=== PATIENT | female | born 1960 | race American Indian/Alaskan Native ===

== ENCOUNTER 2016-12-28 09:20 | Outpatient (CLI) | payer OTHER ==
--- NOTE | 2016-12-28 16:43 | Ultrasound Report ---
THYROID ULTRASOUND:12/28/16 09:20:00 CLINICAL: Thyrotoxicosis. FINDINGS: High-resolution ultrasound demonstrated a mildly enlarged and multinodular thyroid. The right lobe measures 5.2 x 1.4 x 2.2cm. The left lobe measures 4.6 x 2.0 x 2.1 cm. The isthmus measures 8.0 mm in thickness. Numerous subtle bilateral hypoechoic nodules. The largest is in the right lower pole and measures 1.4 x 1.3 x 1.3 cm. IMPRESSION: Enlarged multinodular thyroid with a dominant right lower pole 1.4 cm nodule.
== END 2016-12-28 09:21 | disposition home or self-care (01) ==
LOC: SPVWC 09:20
PROVIDERS: ATTEND Family Medicine
DX: E05.80 Other thyrotoxicosis without thyrotoxic crisis or storm (principal); E04.2 Nontoxic multinodular goiter
CPT/HCPCS: 76536

== ENCOUNTER 2017-01-03 09:28 | Day surgery (SDC) | payer OTHER ==
[~2017-01-03 09:28] MED LIST: DIPRIVAN 10 MG/ML IV ONE
--- NOTE | 2017-01-03 10:56 | Anesthesia Day of Surgery ---
Anesthesia Day of Surgery - Day of Surgery Patient Examined: Yes Patient H&P Reviewed: Yes Patient is NPO: Yes
--- NOTE | 2017-01-03 10:56 | Anesthesia Consultation ---
Anesthesia Consult and Med Hx Date of service: 01/03/17 - Airway Anesthetic Teeth Evaluation: Good, Dentures (top) ROM Head & Neck: Adequate Mental/Hyoid Distance: Adequate Mallampati Class: Class III Intubation Access Assessment: Possibly Difficult - Pulmonary Exam CTA: Yes - Cardiac Exam Cardiac Exam: RRR - Pre-Operative Health Status ASA Pre-Surgery Classification: ASA2 Proposed Anesthetic Plan: MAC - Pulmonary Hx Smoking: Yes (did not abstain) - Cardiovascular System Hx Hypertension: No - Central Nervous System Hx Back Pain: Yes - Gastrointestinal Hx Gastroesophageal Reflux Disease: Yes - Endocrine Hx Non-Insulin Dependent Diabetes: Yes Hx Hypothyroidism: Yes - Other Systems Hx Obesity: Yes
[2017-01-03] MEDS ORDERED: NACL 0.9% 1000 ML 1,000 ML IV SCH (11:00)
[2017-01-03] MEDS ORDERED: WATER FOR IRRIG STERILE IR ONE (12:31)
[2017-01-03] MEDS ORDERED: XYLOCAINE MPF 2% ONE (12:31)
[2017-01-03] MEDS ORDERED: WATER FOR IRRIG STERILE ONE (12:32)
[2017-01-03] MEDS ORDERED: INFANTS' GAS RELIEF PO ONE (12:32)
--- NOTE | 2017-01-03 13:25 | Operative Report ---
Operative Report Operative Report: Date of procedure: 01/03/2017 Procedure: Colonoscopy with snare polypectomy, hot biopsy polypectomy, polyp ablation. Attending physician: Anil Lan MD Flare Maker: Anil Lan MD Indication: Patient is a 56-year-old female who presents for colorectal cancer screening. A colonoscopy is done to evaluate patient so that treatment may be directed based on the findings. Consent: Informed consent was obtained after advising the patient and family regarding nature of this procedure, its indications, potential benefits as well as possible complications including but not limited to bleeding perforation and adverse reaction to medication, infection as well as other cardiopulmonary complications. An informed written and verbal consent was then obtained after due opportunity was provided for questions and answers. Monitoring: Patient was monitored continuously with pulse oximetry and electrocardiographic recordings as well as blood pressure recordings. Vital signs remained stable throughout this procedure with no untoward events. Preoperative assessment: Patient was assessed immediately prior to this procedure for capacity to tolerate monitored anesthesia care and moderate sedation as well as general anesthesia. Patient's ASA classification is 2, Mallampati class is 2, Hyomental distance is 3. Instrument: Tekora video colonoscope Medications: Propofol given intravenously in divided doses. For details please refer to anesthesia records. Description of procedure: Patient was placed in the left lateral decubitus position after achieving sedation, a digital rectal examination was performed following which the colonoscope was introduced into the anal verge and advanced to the cecum which was identified by the cecal valve, the appendiceal orifice, as well as by the cecal strap and direct transillumination. The colonoscope was subsequently withdrawn with careful inspection of all mucosal surfaces. Patient tolerated this procedure well and was subsequently taken to the recovery room. The following findings were noted. Findings: The preparation was average. The cecum was normal. The ascending colon was normal. The transverse colon was normal. The descending colon was normal. In the sigmoid colon, patient had a semi-pedunculated 1 cm polyp which was removed by snare electrocautery and retrieved. In the rectum, patient had a 6 m sessile polyp that was removed biopsy polypectomy. There was an adjoining 4 mm sessile polyp that was removed biopsy polypectomy. There was a diminutive 3 mm polyp that was ablated. On the retroflex view at the anal verge , patient had internal hemorrhoids. Impression: Sigmoid colon polyp status post snare polypectomy. Rectal polyps status post hot biopsy polypectomy. Rectal polyp status post ablation. Internal hemorrhoids. Plan: Follow pathology report. High-fiber diet. Repeat colonoscopy in 5 years.
--- NOTE | 2017-01-03 13:25 | Discharge Summary ---
Short Stay Discharge Plan Activity: advance as tolerated Weight Bearing Status: Weight Bear as Tolerated Diet: regular Follow up with: ANAHI MINA MD [Primary Care Provider] - 7 Days
[2017-01-03 13:41] VITALS: BP 131/84
--- NOTE | 2017-01-03 15:01 | Post Anesthesia Evaluation ---
- Post Anesthesia Evaluation Patient Participated: Yes Airway Patent: Yes Stable Respiratory Function: Yes Nausea/Vomiting: No Temp > 96.8F: Yes Pain Manageable: Yes Adequeate Hydration: Yes Anesthesia Complications: No Block Receding Appropriately: Not Applicable Patient on Ventilator: No
== END 2017-01-03 09:29 | disposition home or self-care (01) ==
LOC: GIO 09:28
PROVIDERS: ATTEND Internal Medicine Gastroenterology
DX: Z12.11 Encounter for screening for malignant neoplasm of colon (principal); K63.5 Polyp of colon; K62.1 Rectal polyp; K64.8 Other hemorrhoids; K21.9 Gastro-esophageal reflux disease without esophagitis; E11.9 Type 2 diabetes mellitus without complications; F17.210 Nicotine dependence, cigarettes, uncomplicated; E03.9 Hypothyroidism, unspecified; E66.9 Obesity, unspecified; Z68.39 Body mass index [BMI] 39.0-39.9, adult; Z79.899 Other long term (current) drug therapy; Z79.4 Long term (current) use of insulin
CPT/HCPCS: 45384; 45385; 45388; 82962; 88305; J2704; J7030

== ENCOUNTER 2017-02-25 10:41 | Outpatient (CLI) | payer OTHER ==
--- NOTE | 2017-02-25 11:41 | Mammography Report ---
BILATERAL DIGITAL SCREENING MAMMOGRAM with CAD: 02/25/17 10:41:00 CLINICAL: Routine screening. COMPARISON:None available. FINDINGS: The breasts are almost entirely fatty.A small group of left inner calcifications on the CC view are obviously dermal based on the MLO view. No mass, architectural distortion or suspicious calcifications. IMPRESSION: No mammographic evidence of malignancy. BI-RADS CATEGORY: 2 -- Benign RECOMMENDATION: Routine mammographic screening in one year. COMMENT: Patient follow-up letters are generated by our [employer] application.
== END 2017-02-25 10:42 | disposition home or self-care (01) ==
LOC: SPVWC 10:41
PROVIDERS: ATTEND Registered Nurse
DX: Z12.31 Encounter for screening mammogram for malignant neoplasm of breast (principal)
CPT/HCPCS: 77067; G0202

== ENCOUNTER 2018-07-06 13:31 | Outpatient (CLI) | payer MEDICARE ==
--- NOTE | 2018-07-07 11:45 | Mammography Report ---
BILATERAL DIGITAL SCREENING MAMMOGRAM with CAD: 07/06/18 13:31:00 CLINICAL: Routine screening. COMPARISON:02/25/17 FINDINGS: The breasts are almost entirely fatty.A few bilateral scattered benign calcifications. No mass, architectural distortion or suspicious calcifications. IMPRESSION: No mammographic evidence of malignancy. BI-RADS CATEGORY: 2 - - Benign RECOMMENDATION: Routine mammographic screening in one year. COMMENT: Patient follow-up letters are generated by our [employer] application.
== END 2018-07-06 13:32 | disposition home or self-care (01) ==
LOC: SPVWC 13:31
PROVIDERS: ATTEND Nurse Practitioner Family
DX: Z12.31 Encounter for screening mammogram for malignant neoplasm of breast (principal); E78.00 Pure hypercholesterolemia, unspecified; K21.9 Gastro-esophageal reflux disease without esophagitis; E11.9 Type 2 diabetes mellitus without complications; E03.9 Hypothyroidism, unspecified; F17.210 Nicotine dependence, cigarettes, uncomplicated; Z90.710 Acquired absence of both cervix and uterus
CPT/HCPCS: 77067

== ENCOUNTER 2019-10-05 12:01 | Outpatient (CLI) | payer MEDICARE ==
--- NOTE | 2019-10-08 15:51 | Mammography Report ---
DIGITAL SCREENING MAMMOGRAM WITH CAD, 10/05/2019 INDICATION: Routine screening mammography. TECHNIQUE: Digital bilateral 2D mammography was obtained in the craniocaudal and mediolateral obliq ue projections. This examination was interpreted with the benefit of Computer-Aided Detection analysi s. COMPARISON: 07/06/2018 FINDINGS: Breast Density: The breasts are almost entirely fatty. There is no evidence of dominant mass, suspicious calcifications or architectural distortion in eithe r breast. IMPRESSION: No mammographic evidence of malignancy. Follow up recommendation: Routine yearly BI-RADS Category 1: Negative. A "normal" or negative report should not discourage follow up or biopsy of a clinically significant f inding. A written summary of these findings will be mailed to the patient. The patient will be entered into a mammography reporting system which will generate a reminder letter for the patient's next appointmen t at the appropriate interval. The [employer] recommends yearly mammograms starting at age 40 and continuing as l soto as a woman is in good health. Breast MRI is recommended for women with an approximate 20-25% or greater lifetime risk of breast cancer, including women with a strong family history of breast or ova stefani cancer or who have been treated for Hodgkin's disease. Signer Name: Jaylan Carlos MD Signed: 10/08/2019 3:46 PM Workstation Name: [id number]
== END 2019-10-05 12:02 | disposition home or self-care (01) ==
LOC: SPVWC 12:01
PROVIDERS: ATTEND Family Medicine
DX: Z12.31 Encounter for screening mammogram for malignant neoplasm of breast (principal)
CPT/HCPCS: 77067